=== PATIENT | male | born 1955 | race Caucasian/White ===

== ENCOUNTER 2016-05-14 21:09 | Emergency (ER) | payer OTHER ==
[~2016-05-14] VITALS: Ht 182.9 cm; Wt 109.3 kg
[2016-05-14] MEDS ORDERED: SODIUM CHLORIDE FLUSH 3 ML SYR IV PRN (21:50)
[2016-05-14] MEDS ORDERED: SODIUM CHLORIDE 250 ML IV PRN (21:50)
[2016-05-14] MEDS ORDERED: SODIUM CHLORIDE FLUSH 10 ML SYR IV PRN (21:50)
[2016-05-14 22:12] LABS: BASOPHILS % (AUTO) 0 % (0-2); EOSINOPHILS # (AUTO) 0.1 10^3uL; EOSINOPHILS % (AUTO) 1 % (0-4); LYMPHOCYTES # (AUTO) 3.3 X10^3; MEAN CORPUSCULAR VOLUME 88 FL (80-100); MEAN PLATELET VOLUME 11.3 FL (6.0-9.5); MONOCYTES # (AUTO) 0.8 X10^3; MONOCYTES % (AUTO) 7 % (3-11); NEUTROPHILS # (AUTO) 6.7 X10^3; NEUTROPHILS % (AUTO) 61 % (51-67); PLATELET COUNT 252 10^3uL (150-450); WHITE BLOOD COUNT 10.88 10^3uL (4.0-11.0)
[2016-05-14 22:16] LABS: MEAN CORPUSCULAR HEMOGLOBIN 32.1 PG (26.0-34.0); MEAN CORPUSCULAR HGB CONC 36.3 g/dL (31.0-37.0)
[2016-05-14 22:21] LABS: ALBUMIN 4.3 g/dL (3.4-5.0); ANION GAP 14.5 MEQ/L (3-15); CALCULATED IONIZED CALCIUM 3.8 mg/dL (3.8-4.6); TOTAL PROTEIN 7.7 g/dL (6.4-8.5)
--- NOTE | 2016-05-14 22:39 | NUR ---
RECEIVED CRITICAL VALUE OF ELEVATED CK - 213. DR. KAUFMANLY NOTIFIED OF THIS VALUE.
--- NOTE | 2016-05-14 22:41 | NUR ---
RECEIVED SECOND CRITICAL VALUE - TROPONIN OF 0.[address] GARCIA AT THIS TIME OF THIS VALUE.
[2016-05-14] MEDS ORDERED: HEPARIN DRIP 25000 UNIT/250 ML 250 ML IV ONE (23:10)
[2016-05-14] MEDS ORDERED: CLOPIDOGREL 75 MG (PLAVIX) TAB PO ONE (23:10)
[2016-05-14] MEDS ORDERED: HEPARIN 1000 UNIT/ML 2 ML VIAL IV ONE (23:10)
[2016-05-14 23:57] VITALS: BP 139/75
== END 2016-05-15 00:02 | disposition short-term general hospital (02) ==
LOC: ED 21:11
DX: R07.2 Precordial pain (principal); R79.89 Other specified abnormal findings of blood chemistry; F17.210 Nicotine dependence, cigarettes, uncomplicated
CPT/HCPCS: 36415; 71010; 80053; 82550; 82553; 84484; 85025; 85610; 85730; 93005; 96374; 99285; J1644; 93010

== ENCOUNTER → 2016-05-14 | Outpatient (CLI) | payer OTHER | LOC: EMS 23:58 | PROVIDERS: ATTEND Family Medicine | DX: I21.3 ST elevation (STEMI) myocardial infarction of unspecified site (principal) ==